=== PATIENT | female | born 1965 | race Caucasian/White ===

== ENCOUNTER 2019-04-23 17:48 | Emergency (ER) | payer MEDICAID ==
[~2019-04-23] VITALS: Ht 152.4 cm; Wt 68.2 kg
[2019-04-23] MEDS ORDERED: AMPI500C68 PO (17:58)
[2019-04-23] MEDS ORDERED: IBUPROFEN 600 MG TABLET PO ONE (19:00)
[2019-04-23] MEDS ORDERED: HYDROCODONE/ACETAMINOPHEN 5-325 MG TABLET PO ONE (19:00)
[2019-04-23 19:54] VITALS: BP 140/81
== END 2019-04-23 19:55 | disposition home or self-care (01) ==
LOC: EMS 17:51
DX: M26.602 Left temporomandibular joint disorder, unspecified (principal); K08.89 Other specified disorders of teeth and supporting structures